=== PATIENT | male | born 1990 | race African-American/Black ===

== ENCOUNTER 2020-07-06 15:16 | Outpatient (CLI) | payer MEDICARE, OTHER ==
[2020-07-06 18:03] LABS: #Basophils 0.1 thou/uL (0.0-0.2); #Eosinphils 0.2 thou/uL (0.0-0.7); #Lymphocytes 1.3 thou/uL (1.20-3.40); #Monocytes 0.9 thou/uL (0.11-0.59); %Basophils 0.6 % (0.0-1.0); %Eosinophils 1.3 % (0.0-10.0); %Lymphocytes 11.3 % (21.0-51.0); %Monocytes 7.9 % (0.0-10.0); %Neutrophils 78.9 % (42.0-75.0); Hemoglobin 16.1 g/dL (14.0-18.0); Mean Corpuscular Hemoglobin 34.5 pg (27.0-31.0); Mean Platelet Volume 8.1 fL (7.4-10.4); Platelet Count 256 thou/uL (130-400); RBC Distribution Width 11.7 % (11.5-14.5); Red Blood Cell (RBC) Count 4.66 mill/uL (4.70-6.10); White Blood Cell (WBC) Count 11.4 thou/uL (4.8-10.8)
[2020-07-07 11:28] LABS: SARS-CoV-2 MS2 Positive; SARS-CoV-2 N Gene Negative; SARS-CoV-2 S Gene Negative; SARS-CoV-2 by NAA Not Detected (NotDetected); SARS-CoV-2 orf1ab Negative
== END 2020-07-06 15:17 | disposition home or self-care (01) ==
LOC: LABBT 15:16
PROVIDERS: ATTEND Orthopaedic Surgery Hand Surgery
DX: Z01.812 Encounter for preprocedural laboratory examination (principal); S61.202A Unspecified open wound of right middle finger without damage to nail, initial encounter; Z20.828 Contact with and (suspected) exposure to other viral communicable diseases
CPT/HCPCS: 85025; U0003; 87635

== ENCOUNTER 2020-07-11 08:20 | Day surgery (SDC) | payer MEDICARE ==
[2020-07-07 11:10] VITALS: BMI 20.5
[2020-07-11] MEDS ORDERED: Clindamycin/D5W 600 mg/50 ml Premix Bag ONE (08:40)
[2020-07-11] MEDS ORDERED: Midazolam HCl 2 mg/2 ml Vial ONE (09:18)
[2020-07-11] MEDS ORDERED: Fentanyl 100 MCG/2 ML VIAL ONE (09:18)
[2020-07-11] MEDS ORDERED: Bacitracin Zinc Ointment 30 gm TUBE ONE (09:24)
[2020-07-11] MEDS ORDERED: Bupivacaine PF 0.5% 30 ML VIAL ONE (09:24)
[2020-07-11] MEDS ORDERED: Thrombin 5000 UNITS/5 ML VIAL ONE (09:24)
[2020-07-11] MEDS ORDERED: Sodium Chloride 0.9% 30 ML ONE (09:25)
--- NOTE | 2020-07-11 11:17 | RAD ---
Exam: 6 intraoperative images right hand HISTORY: Foreign body removal right hand. COMPARISON: 07/03/2020 FINDINGS/IMPRESSION: Initial imaging of the right hand demonstrates metallic instrument overlying the level of the foreign body seen in the medial subcutaneous soft tissues adjacent to the proximal right fifth metacarpal along the volar surface. Subsequent images demonstrate absence of the foreign body compatible with fo reign body removal. Correlation with intraoperative findings is recommended. Fluoroscopy: Time-1 second Dose-0.328 mGy
[2020-07-11] MEDS ORDERED: Ketorolac Tromethamine 30 MG/ML VIAL ONE ×2 (12:06→14:18)
[2020-07-11] MEDS ORDERED: EPHEDRINE 25 MG/5 ML SYRINGE ONE (14:18)
[2020-07-11] MEDS ORDERED: Ondansetron PF 4 MG/2 ML Vial ONE (14:18)
[2020-07-11] MEDS ORDERED: Lidocaine 1% PF 5 ML VIAL ONE (14:18)
[2020-07-11] MEDS ORDERED: PROPOFOL 200 MG/20 ML VIAL ONE (14:18)
[2020-07-11] MEDS ORDERED: Dexamethasone 20 MG/5 ML VIAL ONE (14:18)
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
== END 2020-07-11 13:53 | disposition home or self-care (01) ==
LOC: SDC 08:20
PROVIDERS: ATTEND Orthopaedic Surgery Hand Surgery
PROC: 0JCJ0ZZ Extirpation of Matter from Right Hand Subcutaneous Tissue and Fascia, Open Approach (ICD-10-PCS; principal; 2020-07-11)
DX: S61.244A Puncture wound with foreign body of right ring finger without damage to nail, initial encounter (principal); S61.246A Puncture wound with foreign body of right little finger without damage to nail, initial encounter; Z18.89 Other specified retained foreign body fragments; Z79.899 Other long term (current) drug therapy; Z88.0 Allergy status to penicillin; W40.9XXA Explosion of unspecified explosive materials, initial encounter
CPT/HCPCS: 76000; 88300; J1100; J1885; J2250; J2405; J2704; J3010; J3490; S0020